=== PATIENT | female | born 1960 | race Caucasian/White ===

== ENCOUNTER 2017-09-11 21:14 | Emergency (ER) | payer BC ==
[~2017-09-11] VITALS: Ht 162.6 cm; Wt 75.9 kg
[~2017-09-11 21:14] MED LIST: AMBIEN10 MG PO; AMBIEN5 MG PO; ASPIR 8181 M1 PO; ASPIRIN81 M1 PO; CALCIUM 500 MG1 EACH PO; CENTRUM SILVER1 EAC3 PO; CIPRO250 MG PO; CRANBERRY PLUS1 EAC1 PO; DAILY VALUE1 EACH PO; DEXILANT60 MG PO; EPINEPHRIN0.15 MG/0. IM; EPIPEN ADU0.3 MG/0.3 IM; FLONASE16 G1 BOTH NARES; KLOR-CON 1010 ME1 PO; LOVASTATIN40 MG PO; MACROBID100 MG PO; METFORMIN HCL500 MG PO; NEXIUM40 MG PO; PERCOCET 5/31 TABLET PO; TOPIRAMATE25 MG PO; TRICOR145 MG PO; VALIUM5 MG PO; VIBRAMYCIN100 MG; VITAMIN D-32000 UNI1 PO; VITAMIN D2000 UNIT PO; ZOLOFT100 MG PO; ZOLOFT50 MG PO
[2017-09-11 22:13] LABS: MCHC 36.1 G/DL (30.0-36.0); MCV 85.8 FL (83-99); MEAN PLAT.VOLUME 11.9 uM^3 (9.5-12.4); PLATELET COUNT 150 K/uL (156-360); RBC DIS.WIDTH-CV 11.9 % (11.8-14.6); RBC DIS.WIDTH-SD 37.3 % (39-53); RED BLOOD COUNT 5.13 M/uL (3.80-5.20); WHITE BLOOD COUNT 12.5 K/uL (4.1-10.2)
[2017-09-11 22:21] LABS: CHLORIDE 97 mEq/L (99-109); POTASSIUM 3.5 mEq/L (3.7-5.4); SODIUM 133 mEq/L (136-147)
[2017-09-11 22:25] LABS: ANION GAP 13 MEQ/L (2-14)
[2017-09-11 22:27] LABS: GFR ESTIMATE (CALCULATED) 55 mL/min/
[2017-09-11 22:28] LABS: UREA NITROGEN (BUN) 14 mg/dL (9-23)
[2017-09-11 22:31] LABS: GLUCOSE 569 mg/dL (70-99)
[2017-09-11 22:34] LABS: TROP-I INTERPRETATION NEGATIVE; TROPONIN-I < 0.01 ng/mL (0.0-0.30)
[2017-09-12 00:17] LABS: POINT-OF-CARE METER ID UU13113702
[2017-09-12] MEDS ORDERED: BENADRYL25 MG PO (00:43)
[2017-09-12] MEDS ORDERED: PREDNISONE20 MG PO (00:43)
[2017-09-12 01:00] VITALS: BP 102/72
== END 2017-09-12 01:01 | disposition home or self-care (01) ==
LOC: EME → EDBD 21:14 → EME 21:14
PROVIDERS: Emergency Medicine
DX: T78.1XXA Other adverse food reactions, not elsewhere classified, initial encounter (principal); L50.9 Urticaria, unspecified; R06.02 Shortness of breath; X58.XXXA Exposure to other specified factors, initial encounter; E11.65 Type 2 diabetes mellitus with hyperglycemia; Z79.84 Long term (current) use of oral hypoglycemic drugs; E78.5 Hyperlipidemia, unspecified; Z79.82 Long term (current) use of aspirin; Z72.0 Tobacco use
CPT/HCPCS: 80048; 82948; 84484; 85027; 93005; 99281; 99285; J0171; J1200; J2930; J7644